=== PATIENT | male | born 1965 | race Caucasian/White ===

== ENCOUNTER 2018-07-26 16:03 | Outpatient (REF) | payer BC, SELFPAY ==
[2018-07-26 20:39] LABS: COMMENT (LAB VIEW ONLY) 64.02 mg/dL; Microalb ug/mg Crea 6.4 ug/mg Cr
== END 2018-07-26 16:23 ==
LOC: NCHCN 16:03
PROVIDERS: PCP Physician Assistant Medical; Visit Provider Physician Assistant Medical
DX: E11.9 Type 2 diabetes mellitus without complications (principal)
CPT/HCPCS: 82043; 82570

== ENCOUNTER 2019-04-30 09:01 | Outpatient (REF) | payer BC, SELFPAY ==
[2019-04-30 19:33] LABS: Anion Gap 12.1 mmol/L (3-11); BUN 22 mg/dL (7-18); CO2 24.9 mmol/L (21.0-32.0); Calcium 9.2 mg/dL (8.5-10.1); Chloride 102 mmol/L (98-107); Glucose 156 mg/dL (70-100); Potassium 4.7 mmol/L (3.5-5.1); Sodium 139 mmol/L (136-145)
[2019-05-02 12:36] LABS: PSA, Screening 1.3 ng/ml (0-3.5)
== END 2019-04-30 09:21 ==
LOC: NCHCN 09:01
PROVIDERS: PCP Physician Assistant Medical; Visit Provider Physician Assistant Medical
DX: E11.9 Type 2 diabetes mellitus without complications (principal); R39.15 Urgency of urination; Z12.5 Encounter for screening for malignant neoplasm of prostate
CPT/HCPCS: 80048; 84153

== ENCOUNTER 2019-07-31 08:59 | Outpatient (REF) | payer BC, SELFPAY ==
[2019-07-31 19:09] LABS: Anion Gap 13.9 mmol/L (3-11); BUN 25 mg/dL (7-18); CO2 23.1 mmol/L (21.0-32.0); CREATININE 0.99 mg/dL (0.70-1.30); Calcium 9.3 mg/dL (8.5-10.1); Calculated LDL 45 mg/dL; Chloride 98 mmol/L (98-107); Cholesterol 113 mg/dL (50-200); Glucose 258 mg/dL (70-100); HDL Cholesterol 28 mg/dL (40-60); Potassium 4.6 mmol/L (3.5-5.1); Sodium 135 mmol/L (136-145); Triglyceride 204 mg/dL (30-150)
[2019-07-31 19:41] LABS: Hemoglobin A1C 7.5 % (4.5-6.2)
== END 2019-07-31 09:19 ==
LOC: NCHCN 08:59
PROVIDERS: PCP Nurse Practitioner Family; Visit Provider Nurse Practitioner Family
DX: E11.9 Type 2 diabetes mellitus without complications (principal); Z13.220 Encounter for screening for lipoid disorders
CPT/HCPCS: 80048; 80061; 83036

== ENCOUNTER 2019-12-31 12:37 | Outpatient (REF) | payer MEDICAID, SELFPAY ==
[2019-12-31 20:29] LABS: ALT 129 U/L (16-63); AST 39 U/L (15-37); Albumin 4.1 g/dL (3.4-5.0); Alkaline Phosphatase 121 U/L (46-116); BUN 22 mg/dL (7-18); Bilirubin, Total 0.4 mg/dL (0.2-1.0); CREATININE 1.08 mg/dL (0.70-1.30); Calcium 9.2 mg/dL (8.5-10.1); Chloride 100 mmol/L (98-107); Glucose 359 mg/dL (74-106); Potassium 4.5 mmol/L (3.5-5.1); Sodium 137 mmol/L (136-145); Total Protein 7.6 g/dL (6.4-8.2)
[2019-12-31 20:30] LABS: Hemoglobin A1C 10.1 % (3.8-5.6)
== END 2019-12-31 12:57 ==
LOC: NCHCN 12:37
PROVIDERS: PCP Nurse Practitioner Family; Visit Provider Nurse Practitioner Family
DX: E11.9 Type 2 diabetes mellitus without complications (principal); I10 Essential (primary) hypertension
CPT/HCPCS: 80053; 83036

== ENCOUNTER 2020-05-20 10:08 | Outpatient (REF) | payer MEDICAID, SELFPAY ==
[2020-05-20 22:36] LABS: COMMENT (LAB VIEW ONLY) 197.09 mg/dL; Microalb ug/mg Crea 13.1 ug/mg Cr
== END 2020-05-20 10:28 ==
LOC: NCHCN 10:08
PROVIDERS: PCP Nurse Practitioner Family; Visit Provider Nurse Practitioner Family
DX: E11.9 Type 2 diabetes mellitus without complications (principal)
CPT/HCPCS: 82043; 82570

== ENCOUNTER 2020-07-31 17:24 | Emergency (ER) | payer MEDICAID, SELFPAY ==
[2020-07-31] VITALS (18 sets, daily range): BP systolic 108–122; BP diastolic 65–83; PULSE 97–112; RESP 14–19; TEMP 36.8; O2SAT 94–97
--- NOTE | 2020-07-31 17:15 | RT.EKG_ITS ---
APPROVED REPORT Exam: Resting ECG Patient Location: E HR:111 bpm ECG Measurements Heart Rate 111 AXIS IN 150 P 34 QRSd 89 QRS 38 QT 335 T 38 QTc 456 Conclusion Sinus tachycardia...rate> 99
--- NOTE | 2020-07-31 17:52 | ED.GENADUL_ITS ---
Discharge Plan Disposition Patient Disposition: HOME Condition: Stable Discharge Details Clinical Impression: Mariano's palsy Primary Care Provider: Jennifer Lisa ED Provider: Franko [facility] Meds and New Rx's Prescriptions: New valacyclovir [Valtrex] 1 gram tablet 1,000 mg PO TID Qty: 20 RF: 0 prednisone 20 mg tablet 60 mg PO DAILY Qty: 18 RF: 0 Continued atorvastatin [Lipitor] 10 mg Tablet 10 mg PO DAILY RF: 0 aspirin 81 mg Tablet,Delayed Release (Dr/Ec) 81 mg PO DAILY RF: 0 loratadine-pseudoephedrine [Claritin-D 24 Hour] 10-240 mg Tablet Extended Release 24 Hr 1 tab PO DAILY RF: 0 ascorbic acid (vitamin C) [Vitamin C] 500 mg Tablet 1,000 mg PO DAILY RF: 0 metformin 1,000 mg Tablet 1,000 mg PO BID RF: 0 montelukast [Singulair] 10 mg Tablet 10 mg PO DAILY RF: 0 esomeprazole magnesium [Nexium] 20 mg Capsule,Delayed Release(Dr/Ec) 20 mg PO DAILY RF: 0 calcium phos,dibas-vitamin D3 77-400 mg-unit Tablet 1 tab PO DAILY RF: 0 Discharge Instructions Instructions: Mariano Palsy (ED) Additional Instructions: Please take medications as prescribed. Please contact your primary care physician to arrange follow-up. Please follow- up with your neurologist. Return to the ER for any worsening or new concerning symptoms. Medical Decision Making 54-year-old male with prior history of remote TIA here with left-sided facial weakness since 5 AM today, associated tingling in his left head as well as left posterior headache. Mariano's palsy vs less likely consider CVA. Patient does seem to have involvement of left forehead weakness. Screening ECG was reviewed and interpreted by me: Sinus with PACs, 73 bpm, no STEMI. Plan to proceed to CT and CTA of the head. Patient has also had some sinus congestion and rhinorrhea. Consider deeper space infection and will obtain CT of the face as well. --CT of the head was interpreted by radiology: IMPRESSION: 1. No evidence for acute transcortical infarct, acute intracranial hemorrhage, or mass effect. [place] Stroke Program Early CT Score (ASPECTS) = 10 2. No significant stenosis or aneurysm. CT Angiography Neck interpreted radiology: IMPRESSION: No significant stenosis. No evidence of acute dissection. CT maxillofacial interpreted by radiology: IMPRESSION: Small polyps versus retention cysts within the maxillary sinuses. No evidence of acute sinusitis. I suspect patient has Mariano's palsy. I will initiate treatment with artificial tears, Valtrex and Solu-Medrol and continue prednisone and antiviral over the next 1 week. Patient will follow-up with his neurologist. Disposition decision was made weighing the risks and benefits of hospitalization versus outpatient treatment, the risk for further decompensation, and the patient's wishes. The patient was stable and requested discharge. Prior to discharge, my usual and customary return precautions were reviewed with the patient - this included follow-up instructions and reason to return to the emergency department if condition worsens, does not improve as expected, or other new concerns arise. HPI General Mode of arrival: ambulatory . Date/Time Provider Initiated Documentation: 07/31/20 17:38 . Limitations to Documentation: no limitations . Information obtained by: patient . HPI Narrative: 54-year-old male with history of prior remote TIA that affected his right side, presents with chief complaint of left facial weakness. Patient notes weakness started around 5 AM this morning. He noted he had trouble drinking fluid because of weakness. He notes weakness is moderate to severe. It is been constant today. He has associated tingling and pressure of the left side of his head as well as mild posterior left-sided headache described as tightness. Of note, patient did have a skin biopsy performed under local anesthesia of the lesion regimen present for some time on the tip of his nose. Patient denies visual changes. Patient denies rash. Related Data Home Medications Medication Instructions Recorded Confirmed ascorbic acid (vitamin C) [Vitamin 1,000 mg PO DAILY 07/31/20 07/31/20 C] aspirin 81 mg PO DAILY 07/31/20 07/31/20 atorvastatin [Lipitor] 10 mg PO DAILY 07/31/20 07/31/20 calcium phos,dibas-vitamin D3 1 tab PO DAILY 07/31/20 07/31/20 esomeprazole magnesium [Nexium] 20 mg PO DAILY 07/31/20 07/31/20 loratadine-pseudoephedrine 1 tab PO DAILY 07/31/20 07/31/20 [Claritin-D 24 Hour] metformin 1,000 mg PO BID 07/31/20 07/31/20 montelukast [Singulair] 10 mg PO DAILY 07/31/20 07/31/20 prednisone 60 mg PO DAILY #18 tab 07/31/20 valacyclovir [Valtrex] 1,000 mg PO TID #20 tab 07/31/20 Previous Rx's Medication Instructions Recorded prednisone 60 mg PO DAILY #18 tab 07/31/20 valacyclovir [Valtrex] 1,000 mg PO TID #20 tab 07/31/20 Allergies Allergy/AdvReac Type Severity Reaction Status Date / Time No Known Allergies Allergy Unverified 07/31/20 17:31 General Stated Complaint: CVA/TIA JEREMIE: 3 Review of Systems All systems reviewed & are unremarkable except as noted in HPI and below Constitutional Constitutional: Denies fever(s) ENT Ears, Nose, Mouth, and Throat: Reports sinus pressure Comments: Rhinorrhea [facility] Social History Smoking/Tobacco Use Status: Never Alcohol Intake: never Drug use: Never Substance use type: does not use Do you feel safe at home: Yes Do you feel safe in your relationship?: Yes Exam Const General: cooperative and no acute distress HENMT Mouth: moist mucous membranes Eyes Conjunctivae: normal conjunctivae Sclera: normal sclerae Neck Neck: trachea midline and supple Resp Auscultation: clear to auscultation bilaterally, no rales, no rhonchi and no wheezes Cardio Jugular venous pressure: no JVD Rate: regular rate and not tachycardic Rhythm: regular rhythm GI Palpation: soft, not firm, no guarding, no masses, not rigid and nontender Skin General skin exam: no rashes or lesions noted Neuro General: patient alert, patient awake, patient oriented x3 and tone normal Cranial Nerves: PERRL, accommodation normal, EOM intact bilaterally, facial strength abnormal (Left facial weakness), able to rotate head bilaterally, able to elevate shoulders bilaterally and symmetric palate elevation Cognition: normal cognition Speech: speech normal Motor: muscle tone normal throughout, strength 5/5 throughout and other (facial weakness left including forehead) Sensory Exam: other (Patient notes odd sensation left face compared to right, otherwise sensa) Extrem General: no edema Psych Appearance: grossly normal Mental Status: mental status grossly normal Course Vital Signs Vital signs: Vital Signs Temperature 36.8 C 07/31/20 17:26 Pulse 110 H 07/31/20 17:26 Blood Pressure 122/80 10/01/20 17:26 Pulse Oximetry 96 07/31/20 17:26 Temperature 36.8 C 07/31/20 17:26 Temperature Source Temporal Artery Scan 07/31/20 17:26 Pulse 110 H 07/31/20 17:26 Respiratory Effort Non-Labored 07/31/20 17:42 Respiratory Pattern Normal 07/31/20 17:42 Blood Pressure 122/80 07/31/20 17:26 Blood Pressure Position Sitting 07/31/20 17:26 Pulse Oximetry 96 07/31/20 17:26 Oxygen Delivery Method Room Air 07/31/20 17:26 Oxygen Flow Rate 0 07/31/20 17:26 Pain Level 7 07/31/20 17:26
[2020-07-31 18:06] LABS: Abs Immature Grans 0.02 10^3/uL (0.0-0.06); Absolute Basophil Count 0.04 10^3/uL (0.0-0.2); Absolute Eosinophil Count 0.26 10^3/uL (0.0-0.7); Absolute Lymphocyte Count 2.48 10^3/uL (1.2-3.4); Absolute Monocyte Count 0.84 10^3/uL (0.1-0.8); Absolute Neutrophil Count 5.29 10^3/uL (1.2-6.7); Basophils % 0.4; Eosinophils % 2.9; HCT 46.5 % (40.0-50.0); HGB 15.8 g/dL (13.5-17.5); Immature Grans % 0.2; Lymphocytes % 27.8; MCH 30.7 pg (27.0-33.0); MCV 90.5 fL (80-95); MPV 10.1 fL (8.0-11.0); Monocytes % 9.4; Neutrophils % 59.3; Nucleated RBC 0 %; Platelet Count 234 10^3/uL (130-400); RBC 5.14 10^6/uL (4.36-5.78); RDW 12.2 % (11.8-14.1); RDW-SD 40.3 fL; WBC 8.93 10^3/uL (4.4-10.8)
[2020-07-31 18:22] LABS: ALT 65 U/L (16-63); AST 19 U/L (15-37); Albumin 3.9 g/dL (3.4-5.0); Alkaline Phosphatase 76 U/L (46-116); Anion Gap 9.9 mmol/L (3-11); BUN 22 mg/dL (7-18); Bilirubin, Total 0.3 mg/dL (0.2-1.0); CO2 25.1 mmol/L (21.0-32.0); CREATININE 1.04 mg/dL (0.70-1.30); Calcium 8.8 mg/dL (8.5-10.1); Chloride 103 mmol/L (98-107); Glucose 156 mg/dL (74-106); Potassium 4.2 mmol/L (3.5-5.1); Sodium 138 mmol/L (136-145); Total Protein 7.2 g/dL (6.4-8.2); Troponin I < 0.05 ng/mL (<0.06)
--- NOTE | 2020-07-31 18:39 | NUR.NOTE ---
pt in CT
--- NOTE | 2020-07-31 18:55 | DI.CT_ITS ---
EXAM: CT FACIAL W CLINICAL HISTORY: sinus congestion, left facial weakness. TECHNIQUE: Imaging Protocol: Axial computed tomography images with coronal and sagittal reformatted images were created and reviewed CONTRAST MATERIAL: Intravenous: Omnipaque 350 Contrast volume 100 cc contrast route:IV - COMPARISON: CT CT BRAIN NECK CTA from 07/31/2020 FINDINGS: Facial Bones: No definite fracture is noted in facial bones. Sinuses and Mastoids: Small mucous retention cyst at the floor of the left maxillary sinus. Minimal mucous retention at the floor of the right maxillary sinus. Globes, extraocular muscles, optic nerves and retrobulbar fat: Normal. Upper aerodigestive tract: Normal. Mandible and bilateral temporomandibular joints: Normal. Soft tissues: Normal. IMPRESSION: Small mucous retention cysts in the maxillary sinuses. No evidence of acute sinusitis, bony destruct ion or abscess. RADIATION DOSE DELIVERED: Total DLP DATA REPOSITORY: All CT scans at this facility are submitted to the National Radiology Data Registry (NRDR) Dose Index Registry (DIR) with the [employer] (ACR). RADIATION OPTIMIZATION: All CT scans at this facility use at least one of these dose optimization te chniques: automated exposure control; mA and/or kV adjustment per patient size (includes targeted exa ms where dose is matched to clinical indication); or iterative reconstruction.
--- NOTE | 2020-07-31 18:55 | DI.CT_ITS ---
EXAM: CT BRAIN NECK CTA CLINICAL HISTORY: left facial weakness and headache. TECHNIQUE: Imaging Protocol: Axial CT angiography was performed with multi-slice acquisition and mu lti-planar and/or 3D reconstructions. CONTRAST MATERIAL: Intravenous: Omnipaque 350 Contrast volume:100 ml COMPARISON: No exams were available for comparison FINDINGS: CT Head W/O: Ventricles and Extra axial spaces: Normal in size and morphology for the patient's age. Hemorrhage: None. Cerebral parenchyma: Normal. Midline shift: None. Brainstem/Cerebellum: Normal. Calvarium: Normal. Visualized Paranasal sinuses/Mastoids: A small mucous retention cyst at the floor of the left maxilla ry sinus. Soft Tissues: Unremarkable. CTA Brain W: Internal Carotid Arteries: Petrous: Normal. Cavernous: Normal. Cerebral: Normal. Middle Cerebral Arteries: Right: No aneurysm, occlusion or significant stenosis. Left: No aneurysm, occlusion or significant stenosis. Anterior Cerebral Arteries: Right: No aneurysm, occlusion or significant stenosis. Left: No aneurysm, occlusion or significant stenosis. Posterior cerebral Arteries: Right: No aneurysm, occlusion or significant stenosis. Left: No aneurysm, occlusion or significant stenosis. Vertebral Arteries: Right: No aneurysm, occlusion or significant stenosis. Left: No aneurysm, occlusion or significant stenosis. Basilar Artery: No aneurysm, occlusion or significant stenosis. CTA Neck W: Common Carotid: Right: No aneurysm, occlusion or significant stenosis. Left: No aneurysm, occlusion or significant stenosis. External Carotid: Right: No aneurysm, occlusion or significant stenosis. Left: No aneurysm, occlusion or significant stenosis. Internal Carotid: Right: No aneurysm, occlusion or significant stenosis. Left: No aneurysm, occlusion or significant stenosis. Vertebral Artery: Right: No aneurysm, occlusion or significant stenosis. Left: No aneurysm, occlusion or significant stenosis. Lung Apices: Normal. Bones: Degenerative disc changes. Soft Tissues: Normal. IMPRESSION: 1. Normal CTA examination of the [place]. 2. Unremarkable noncontrast CT Head. 3. Normal CTA examination of the neck. RADIATION DOSE DELIVERED: Total DLP DATA REPOSITORY: All CT scans at this facility are submitted to the National Radiology Data Registry (NRDR) Dose Index Registry (DIR) with the [employer] (ACR). RADIATION OPTIMIZATION: All CT scans at this facility use at least one of these dose optimization te chniques: automated exposure control; mA and/or kV adjustment per patient size (includes targeted exa ms where dose is matched to clinical indication); or iterative reconstruction.
[2020-07-31] MEDS: Omnipaque 350 MG/ML 100 ML BTL IJ (19:00)
--- NOTE | 2020-07-31 19:23 | DI.VRAD_ITS ---
PROCEDURE INFORMATION: Exam: CT Angiography Head Without And With Contrast Exam date and time: 07/31/2020 5:52 PM Age: 54 years old Clinical indication: Patient HX: Previous TIA 5 yrs ago. Left facial weakness. TECHNIQUE: Imaging protocol: Computed tomographic angiography of the head without and with intravenous contrast. 3D rendering (Not supervised by radiologist): MIP and/or 3D reconstructed images were created by the technologist. Radiation optimization: All CT scans at this facility use at least one of these dose optimization techniques: automated exposure control; mA and/or kV adjustment per patient size (includes targeted exams where dose is matched to clinical indication); or iterative reconstruction. Contrast material: OMNIPAQUE 350; Contrast volume: 100 ml; Contrast route: INTRAVENOUS (IV); Other technique: STROKE PROTOCOL was implemented. COMPARISON: No relevant prior studies available. FINDINGS: ANTERIOR CIRCULATION: Right internal carotid artery: Intracranial segment is patent with no significant stenosis or occlusion. No aneurysm. Right middle cerebral artery: No occlusion or significant stenosis. No aneurysm. Right anterior cerebral artery: No occlusion or significant stenosis. No aneurysm. Left internal carotid artery: Intracranial segment is patent with no significant stenosis. No aneurysm. Left middle cerebral artery: No occlusion or significant stenosis. No aneurysm. Left anterior cerebral artery: No occlusion or significant stenosis. No aneurysm. POSTERIOR CIRCULATION: Right vertebral artery: No occlusion or significant stenosis. No aneurysm. Left vertebral artery: No occlusion or significant stenosis. No aneurysm. Basilar artery: No occlusion or significant stenosis. No aneurysm. Right posterior cerebral artery: No occlusion or significant stenosis. No aneurysm. Left posterior cerebral artery: No occlusion or significant stenosis. No aneurysm. HEAD: Brain: No evidence for acute transcortical infarct. No mass effect or midline shift. No extra-axial collection. No acute intracranial hemorrhage. Basal cisterns are patent. Cerebral ventricles: Normal. No ventriculomegaly. Bones/joints: Unremarkable. No acute fracture. Paranasal sinuses: Visualized sinuses are normal. No fluid levels. Mastoid air cells: Visualized mastoids are normal. No mastoid effusion. Soft tissues: Unremarkable. IMPRESSION: 1. No evidence for acute transcortical infarct, acute intracranial hemorrhage, or mass effect. [place] Stroke Program Early CT Score (ASPECTS) = 10 2. No significant stenosis or aneurysm. PROCEDURE INFORMATION: Exam: CT Angiography Neck With Contrast Exam date and time: 07/31/2020 5:52 PM Age: 54 years old Clinical indication: Patient HX: Previous TIA 5 yrs ago. Left facial weakness. TECHNIQUE: Imaging protocol: Computed tomography angiography of the neck with intravenous contrast. 3D rendering (Not supervised by radiologist): MIP and/or 3D reconstructed images were created by the technologist. Radiation optimization: All CT scans at this facility use at least one of these dose optimization techniques: automated exposure control; mA and/or kV adjustment per patient size (includes targeted exams where dose is matched to clinical indication); or iterative reconstruction. Contrast material: OMNIPAQUE 350; Contrast volume: 100 ml; Contrast route: INTRAVENOUS (IV); COMPARISON: No relevant prior studies available. FINDINGS: Right common carotid artery: No stenosis. No dissection or occlusion. Right internal carotid artery: No stenosis of the extracranial segment. No dissection or occlusion. Right external carotid artery: No occlusion or stenosis of the origin. Right vertebral artery: No stenosis. No dissection or occlusion. Left common carotid artery: No stenosis. No dissection or occlusion. Left internal carotid artery: No stenosis of the extracranial segment. No dissection or occlusion. Left external carotid artery: No occlusion or stenosis of the origin. Left vertebral artery: No stenosis. No dissection or occlusion. Bones/joints: No acute fracture. Soft tissues: Normal. No significant soft tissue swelling. IMPRESSION: No significant stenosis. No evidence of acute dissection. REFERENCES: NASCET CRITERIA. The degree of internal carotid artery stenosis is based on NASCET criteria. Normal is no stenosis. Mild is less than 50% stenosis. Moderate is 50-69% stenosis. Severe is 70% to 99% stenosis. Total occlusion is no detectable patent lumen. Dictated and Authenticated by: Denis Cason MD. Ordering:DEILA Abdul MD
--- NOTE | 2020-07-31 19:26 | DI.VRAD_ITS ---
PROCEDURE INFORMATION: Exam: CT Maxillofacial With Contrast Exam date and time: 07/31/2020 6:26 PM Age: 54 years old Clinical indication: Sinus congestion, left facial weakness. TECHNIQUE: Imaging protocol: Computed tomography images of the face with intravenous contrast. Radiation optimization: All CT scans at this facility use at least one of these dose optimization techniques: automated exposure control; mA and/or kV adjustment per patient size (includes targeted exams where dose is matched to clinical indication); or iterative reconstruction. Contrast material: OMNIPAQUE 350; Contrast route: INTRAVENOUS (IV); COMPARISON: No relevant prior studies available. FINDINGS: Orbits: Orbits are normal. Globes are unremarkable. Bones/joints: No acute fracture. Paranasal sinuses: Small polyps versus retention cysts within the maxillary sinuses. Soft tissues: Unremarkable. IMPRESSION: Small polyps versus retention cysts within the maxillary sinuses. No evidence of acute sinusitis. Dictated and Authenticated by: Denis Cason MD. Ordering:DELIA Abdul MD
[2020-07-31] MEDS: valACYclovir 1,000 MG TAB 1000 MG PO (20:15)
[2020-07-31] MEDS: Refresh PLUS Eye Drops 0.4ml 1 EACH OU (20:15)
[2020-07-31] MEDS: methylPREDNISolone SUCC 125 MG VIAL 60 MG IVP (20:16)
[2020-08-04 11:09] LABS: Lyme Ab w Rflx to Lyme Confirm Negative (Negative)
[2020-08-04 20:28] LABS: Anaplasma phagocytophilum Negative (Negative); B. miyamotoi PCR Negative (Negative); Babesia divergens/MO-1 Negative (Negative); Babesia duncani Negative (Negative); Babesia microti Negative (Negative); Ehrlichia chaffeensis Negative (Negative); Ehrlichia ewingii/canis Negative (Negative); Ehrlichia muris eauclairensis Negative (Negative)
== END 2020-07-31 20:36 | disposition home or self-care (01) ==
LOC: ER 20:14
PROVIDERS: Emergency Provider Student in an Organized Health Care Education/Training Program; PCP Nurse Practitioner Family
DX: G51.0 Bell's palsy (principal)
CPT/HCPCS: 36415; 36416; 70496; 70498; 80053; 82962; 87798; 93005; 96374; 99285; 70487; 83735; 84484; 85025; 86618; 93010; 99284; J2930; J3490

== ENCOUNTER 2020-09-09 17:34 | Outpatient (REF) | payer MEDICAID, SELFPAY ==
[2020-09-09 20:37] LABS: Anion Gap 9.9 mmol/L (3-11); BUN 14 mg/dL (7-18); CO2 27.1 mmol/L (21.0-32.0); CREATININE 0.94 mg/dL (0.70-1.30); Calcium 8.8 mg/dL (8.5-10.1); Chloride 101 mmol/L (98-107); Glucose 247 mg/dL (74-106); Magnesium 1.9 mg/dL (1.8-2.4); Sodium 138 mmol/L (136-145)
== END 2020-09-09 17:54 ==
LOC: NCHCN 17:34
PROVIDERS: PCP Nurse Practitioner Family; Visit Provider Physician Assistant
DX: R25.2 Cramp and spasm (principal)
CPT/HCPCS: 80048; 83735

== ENCOUNTER 2021-04-23 17:30 | Outpatient (REF) | payer MEDICAID, SELFPAY ==
[2021-04-23 19:15] LABS: ALT 78 U/L (16-63); AST 26 U/L (15-37); Albumin 4.3 g/dL (3.4-5.0); Alkaline Phosphatase 93 U/L (46-116); BUN 20 mg/dL (7-18); Bilirubin, Total 0.5 mg/dL (0.2-1.0); CREATININE 1.3 mg/dL (0.70-1.30); Calcium 9.6 mg/dL (8.5-10.1); Chloride 102 mmol/L (98-107); Estimated GFR 57.31 (mL/min/1.73m2); Glucose 230 mg/dL (74-106); Potassium 4.7 mmol/L (3.5-5.1); Sodium 139 mmol/L (136-145); Total Protein 7.9 g/dL (6.4-8.2)
[2021-04-23 19:19] LABS: Hemoglobin A1C 8.1 % (<5.7)
== END 2021-04-23 17:31 | disposition home or self-care (01) ==
LOC: NCHCN 17:30
PROVIDERS: PCP Nurse Practitioner Family; Visit Provider Nurse Practitioner Family
DX: E11.9 Type 2 diabetes mellitus without complications (principal); I10 Essential (primary) hypertension
CPT/HCPCS: 80053; 83036

== ENCOUNTER 2021-07-23 15:53 | Outpatient (REF) | payer MEDICAID, SELFPAY ==
[2021-07-23 19:28] LABS: COMMENT (LAB VIEW ONLY) 127.62 mg/dL; Microalb ug/mg Crea 6.3 ug/mg Cr
== END 2021-07-23 15:54 | disposition home or self-care (01) ==
LOC: NCHCN 15:53
PROVIDERS: PCP Nurse Practitioner Family; Visit Provider Nurse Practitioner Family
DX: R80.9 Proteinuria, unspecified (principal)
CPT/HCPCS: 82043; 82570

== ENCOUNTER 2022-03-03 12:48 | Outpatient (REF) | payer MEDICAID, SELFPAY ==
[2022-03-03 22:05] LABS: ALT 82 U/L (16-63); AST 29 U/L (15-37); Albumin 4.3 g/dL (3.4-5.0); Alkaline Phosphatase 96 U/L (46-116); BUN 23 mg/dL (7-18); Bilirubin, Total 0.4 mg/dL (0.2-1.0); CREATININE 1.1 mg/dL (0.70-1.30); Calcium 8.8 mg/dL (8.5-10.1); Chloride 101 mmol/L (98-107); Glucose 161 mg/dL (74-106); Potassium 4.6 mmol/L (3.5-5.1); Sodium 139 mmol/L (136-145); Total Protein 7.6 g/dL (6.4-8.2)
== END 2022-03-03 12:49 | disposition home or self-care (01) ==
LOC: NCHCN 12:48
PROVIDERS: PCP Nurse Practitioner Family; Visit Provider Physician Assistant
DX: E11.9 Type 2 diabetes mellitus without complications (principal)
CPT/HCPCS: 80053

== ENCOUNTER 2023-03-15 17:29 | Outpatient (REF) | payer MEDICAID, SELFPAY ==
[2023-03-15 19:13] LABS: ALT 97 U/L (16-63); AST 37 U/L (15-37); Albumin 4.4 g/dL (3.4-5.0); Alkaline Phosphatase 97 U/L (46-116); Anion Gap 9.1 mmol/L (3-11); BUN 18 mg/dL (7-18); Bilirubin, Total 0.4 mg/dL (0.2-1.0); CO2 28.9 mmol/L (21.0-32.0); CREATININE 0.9 mg/dL (0.70-1.30); Calcium 9.6 mg/dL (8.5-10.1); Chloride 99 mmol/L (98-107); Estimated GFR 99.62 (mL/min/1.73m2); Glucose 200 mg/dL (74-106); Potassium 4.8 mmol/L (3.5-5.1); Sodium 137 mmol/L (136-145); Total Protein 8.3 g/dL (6.4-8.2)
[2023-03-15 19:39] LABS: COMMENT (LAB VIEW ONLY) 119.16 mg/dL; Microalb ug/mg Crea 5.9 ug/mg Cr
== END 2023-03-15 17:30 | disposition home or self-care (01) ==
LOC: NCHCN 17:29
PROVIDERS: PCP Nurse Practitioner Family; Visit Provider Physician Assistant
DX: E11.9 Type 2 diabetes mellitus without complications (principal)
CPT/HCPCS: 80053; 82043; 82570

== ENCOUNTER 2024-05-25 16:22 | Outpatient (REF) | payer BC, SELFPAY ==
[2024-05-25 18:41] LABS: Abs Immature Grans 0.02 10^3/uL (0.0-0.06); Absolute Basophil Count 0.06 10^3/uL (0.0-0.2); Absolute Eosinophil Count 0.25 10^3/uL (0.0-0.7); Absolute Lymphocyte Count 1.85 10^3/uL (1.2-3.4); Absolute Monocyte Count 0.63 10^3/uL (0.1-0.8); Basophils % 0.8 %; Eosinophils % 3.2 %; HCT 49.1 % (40.0-50.0); HGB 16.3 g/dL (13.5-17.5); Immature Grans % 0.3 %; MCH 30.2 pg (27.0-33.0); MCHC 33.2 % (32.0-36.0); MCV 91 fL (80-95); MPV 10.1 fL (8.0-11.0); Monocytes % 8.2 %; Neutrophils % 63.5 %; Platelet Count 229 10^3/uL (130-400); RDW 12.1 % (11.8-14.1); RDW-SD 40.4 fL; WBC 7.71 10^3/uL (4.4-10.8)
[2024-05-25 19:05] LABS: Iron 40 ug/dL (65-175); Total Iron Binding Capacity 314 ug/dL (250-450); Transferrin Sat 13 % (20-55)
[2024-05-25 19:11] LABS: ALT 65 U/L (16-63); AST 20 U/L (15-37); Albumin 3.8 g/dL (3.4-5.0); Alkaline Phosphatase 117 U/L (46-116); Anion Gap 9.5 mmol/L (3-11); BUN 19 mg/dL (7-18); Bilirubin, Total 0.49 mg/dL (0.2-1.0); CO2 27.5 mmol/L (21.0-32.0); CREATININE 1.2 mg/dL (0.70-1.30); Calcium 8.9 mg/dL (8.5-10.1); Chloride 98 mmol/L (98-107); Ferritin 89 ng/mL (26-388); Glucose 351 mg/dL (74-106); LDL CHOLESTEROL 47 mg/dL (<100); Sodium 135 mmol/L (136-145); Total Protein 7.3 g/dL (6.4-8.2)
[2024-05-28 13:27] LABS: Hepatitis C Ab w Rflx HCV PCR Negative (Negative)
[2024-05-28 13:49] LABS: HIV-1/2 Ag & Ab Screen Negative (Negative)
== END 2024-05-25 16:23 | disposition home or self-care (01) ==
LOC: NCHCN 16:22
PROVIDERS: PCP Nurse Practitioner Family; Visit Provider Physician Assistant
DX: E11.9 Type 2 diabetes mellitus without complications (principal); I10 Essential (primary) hypertension; R74.9 Abnormal serum enzyme level, unspecified; Z11.4 Encounter for screening for human immunodeficiency virus [HIV]; Z11.59 Encounter for screening for other viral diseases
CPT/HCPCS: 80053; 83721; 86803; 87389; 82728; 83540; 83550; 85025

== ENCOUNTER 2025-08-09 17:00 | Outpatient (REF) | payer BC, SELFPAY ==
[2025-08-09 19:52] LABS: ALT 54 U/L (16-63); AST 19 U/L (15-37); Albumin 4.2 g/dL (3.4-5.0); Alkaline Phosphatase 112 U/L (46-116); Anion Gap 10.7 mmol/L (3-11); BUN 20 mg/dL (7-18); Bilirubin, Total 0.3 mg/dL (0.2-1.0); CO2 26.3 mmol/L (21.0-32.0); Calcium 9.1 mg/dL (8.5-10.1); Chloride 99 mmol/L (98-107); Estimated GFR 86.70 (mL/min/1.73m2); Glucose 287 mg/dL (74-106); LDL CHOLESTEROL 53 mg/dL (<100); Potassium 4.8 mmol/L (3.5-5.1); Sodium 136 mmol/L (136-145); Total Protein 8.0 g/dL (6.4-8.2)
== END 2025-08-09 17:01 | disposition home or self-care (01) ==
LOC: NCHCN 17:00
PROVIDERS: PCP Nurse Practitioner Family; Visit Provider Physician Assistant
DX: E11.65 Type 2 diabetes mellitus with hyperglycemia (principal)
CPT/HCPCS: 80053; 83721